=== PATIENT | male | born 1985 ===

== ENCOUNTER 2018-11-25 09:15 | Outpatient (CLI) | payer OTHER ==
--- NOTE | 2018-11-25 09:49 | ULT ---
US Gallbladder RUQ HISTORY: Right upper quadrant pain COMPARISON: None. FINDINGS: Real-time imaging of the right upper quadrant demonstrates a normal-appearing gallbladder. The common duct is 4 mm. The liver measures 16 cm in length and shows no focal abnormalities. The pancreas is partially obscured. The right kidney is normal in size and not obstructed. IMPRESSION: Unremarkable gallbladder ultrasound.
== END 2018-11-25 09:16 | disposition home or self-care (01) ==
LOC: ULT 09:15
PROVIDERS: ATTEND Internal Medicine Gastroenterology
DX: K21.9 Gastro-esophageal reflux disease without esophagitis (principal); R07.89 Other chest pain; M25.511 Pain in right shoulder
CPT/HCPCS: 76705